=== PATIENT | male | born 2000 | race Two or more races ===

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

== ENCOUNTER 2021-02-06 10:25 | Emergency (ER) | payer MEDICAID ==
[~2021-02-06] VITALS: Ht 190.5 cm; Wt 117.9 kg
[2021-02-06 12:33] VITALS: BP 139/91
== END 2021-02-06 12:41 | disposition home or self-care (01) ==
LOC: ER 10:25
DX: J45.909 Unspecified asthma, uncomplicated (principal)

== ENCOUNTER 2021-08-01 16:38 | Emergency (ER) | payer MEDICAID ==
[~2021-08-01] VITALS: Ht 190.5 cm; Wt 117.9 kg
[2021-08-01] MEDS ORDERED: IPRATROPIUM BROM 0.5 MG/2.5ML INH SOL NEB ONE ×2 (16:45→18:15)
[2021-08-01] MEDS ORDERED: ALBUTEROL SULF 2.5 MG/0.5ML(0.5%) NEB SOLN NEB ONE ×2 (16:45→18:15)
[2021-08-01 16:48] VITALS: BP 142/71
[2021-08-01] MEDS ORDERED: methylPREDNISolone SOD SUCC 125 MG/2 ML VL IM ONE (17:45)
[2021-08-01] MEDS ORDERED: PRED20TA2 PO ×2 (18:23→18:31)
[2021-08-01] MEDS ORDERED: ALBU108A5 IN ×2 (18:23→18:31)
== END 2021-08-01 18:40 | disposition home or self-care (01) ==
LOC: ER 16:38
DX: J45.901 Unspecified asthma with (acute) exacerbation (principal)
CPT/HCPCS: 94640; 96372; 99283; J2930; J7644

== ENCOUNTER 2021-11-11 21:49 | Emergency (ER) | payer MEDICAID ==
[~2021-11-11] VITALS: Ht 190.5 cm; Wt 118.0 kg
[~2021-11-11 21:49] MED LIST: ALBU108A5 IN; PRED20TA2 PO
[2021-11-12 00:10] VITALS: BP 142/83
[2021-11-12] MEDS ORDERED: ALBUTEROL SULF 2.5 MG/0.5ML(0.5%) NEB SOLN NEB ONE (03:00)
[2021-11-12] MEDS ORDERED: IPRATROPIUM BROM 0.5 MG/2.5ML INH SOL NEB ONE (03:00)
[2021-11-12] MEDS ORDERED: AZITTAB PO (04:29)
== END 2021-11-12 04:40 | disposition home or self-care (01) ==
LOC: ER 21:49
DX: U07.1 COVID-19 (principal); J45.909 Unspecified asthma, uncomplicated
CPT/HCPCS: 36415; 71045; 87426; 94640; 99284; J7644

== ENCOUNTER 2023-03-07 13:15 | Emergency (ER) | payer MEDICAID ==
[~2023-03-07] VITALS: Ht 190.5 cm; Wt 120.0 kg
[~2023-03-07 13:15] MED LIST changes: +AZITTAB PO
[2023-03-07 14:07] LABS: COVID19 ANTIGEN SOFIA FIA NEGATIVE (NEGATIVE); Rapid Influenza A Negative (Negative); Rapid Influenza B Negative (Negative)
[2023-03-07 18:19] VITALS: BP 135/85; PULSE 69; RESP 18; TEMP 98.5; O2SAT 97
[2023-03-07] MEDS ORDERED: methylPREDNISolone SOD SUCC 125 MG/2 ML VL IM ONE (19:15)
[2023-03-07] MEDS ORDERED: AMOX875T4 PO (19:18)
[2023-03-07] MEDS ORDERED: PRED20TA2 PO (19:18)
[2023-03-07 19:34] VITALS: PULSE 81
== END 2023-03-07 20:37 | disposition home or self-care (01) ==
LOC: ER 13:15
DX: J20.9 Acute bronchitis, unspecified (principal); F12.10 Cannabis abuse, uncomplicated; J45.909 Unspecified asthma, uncomplicated; R07.89 Other chest pain; Z86.73 Personal history of transient ischemic attack (TIA), and cerebral infarction without residual deficits; Z20.822 Contact with and (suspected) exposure to COVID-19
CPT/HCPCS: 36415; 71046; 87426; 87804; 93005; 96372; 99285; J2930

== ENCOUNTER 2024-06-29 22:50 | Emergency (ER) | payer MEDICAID ==
[~2024-06-29] VITALS: Ht 190.5 cm; Wt 124.2 kg
[~2024-06-29 22:50] MED LIST changes: +AMOX875T4 PO
[2024-06-29] MEDS: DexAMETHasone SOD PHOS 10MG/1ML VIAL INJ IM ONE (23:39)
[2024-06-29 23:46] VITALS: BP 137/75; PULSE 65; RESP 20; TEMP 98.3; O2SAT 97
[2024-06-29] MEDS: IPRATROPIUM BROM 0.5 MG/2.5ML INH SOL NEB ONE (23:59)
[2024-06-29] MEDS: ALBUTEROL SULF 2.5 MG/0.5ML(0.5%) NEB SOLN NEB ONE (23:59)
[2024-06-30] MEDS ORDERED: BUDE1AER5 IN (00:17)
--- NOTE | 2024-06-30 00:17 | ED.PDOC ---
SOB-HPI HPI Comments This patient is a pleasant but morbidly obese 24-year-old male who arrives the ED today for evaluation of shortness a breath and cough that began earlier today and has continued. Patient has a history of asthma and states he has had multiple rounds of albuterol at home without effect. Patient denies any fever nausea or vomiting. Patient denies any current sickness. Patient was mildly tachypneic, but saturating at 98% on room air at arrival. Chief Complaint: Cough Time Seen by MD: 22:54 Primary Care Provider: [facility] Patel notes: Nurses Notes Information Source: Patient Mode of Arrival: Ambulatory Severity: Moderate Timing: Hours Duration: Since onset Context: At Rest PE Risk Factors: None History of: Asthma Prehospital treatment: Treatment Associated Signs and Symptoms: Wheeze, Cough Quality: Tightness If cough with SOB: Non-Productive Past Medical History PAST MEDICAL HISTORY: Asthma, CVA Surgical History: Denies all surgeries Family History Family History: Unknown Social History Smoker: Non-Smoker Alcohol: Denies ETOH Use Drugs: Marijuana Lives In: Home Constitutional: denies: chills, diaphoresis, fatigue, fever, malaise, sweats, weakness, others EENTM: denies: blurred vision, double vision, ear bleeding, ear discharge, ear drainage, ear pain, ear ringing, eye pain, eye redness, hearing loss, mouth pain, mouth swelling, nasal discharge, nose bleeding, nose congestion, nose jacinta n, photophobia, tearing, throat pain, throat swelling, voice changes, others Respiratory: reports: cough, SOB at rest, shortness of breath; denies: hemoptysis, orthopnea, SOB with excertion, stridor, wheezing, others Cardiovascular: denies: chest pain, dizzy spells, diaphoresis, Dyspnea on exertion, edema, irregular heart beat, left arm pain, lightheadedness, palpitations, PND, syncope, others Gastrointestinal: denies: abdomen distended, abdominal pain, blood streaked bowels, constipated, diarrhea, dysphagia, difficulty swallowing, hematemesis, melena, nausea, poor appetite, poor fluid intake, rectal bleeding, rectal pain, vomiting, others Genitourinary: denies: burning, dysuria, flank pain, frequency, hematuria, incontinence, penile discharge, penile sore, pain, testicle pain, testicle swelling, urgency, others Neurological: denies: dizziness, fainting, headache, left sided numbness, left sided weakness, numbness, paresthesia, pre-existing deficit, right sided num bness, right sided weakness, seizure, speech problems, tingling, tremors, weakness, others Musculoskeletal: denies: back pain, gout, joint pain, joint swelling, muscle pain, muscle stiffness, neck pain, others Integumetry: denies: bruises, change in color, change in hair/nails, dryness, laceration, lesions, lumps, rash, wounds, others Allergic/Immunocompromised: denies: Difficulty Healing, Frequent Infections, Hives, Itching, others Hematologic/Lymphatic: denies: anemia, blood clots, easy bleeding, easy bruising, swollen glands, others Endocrine: denies: excessive hunger, excessive sweating, excessive thirst, excessive urination, flushing, intolerance to cold, intolerance to heat, unexplained weight gain, unexplained weight loss, others Psychiatric: denies: anxiety, bipolar disorder, depression, hopeless, panic disorder, schizophrenia, sleepless, suicidal, others Physical Exam General Appearance: Mild Distress (Moderate distress due to shortness a breath concerns. Patient did not look toxic. No signs of respiratory distress.), Obese HEENT: Normal ENT Inspection, Pharynx Normal, TMs Normal Neck: Full Range of Motion, Non-Tender, Normal, Normal Inspection Respiratory: Other ( Patchy wheezing appreciated in right middle and upper lobe. No accessory muscle use.) Cardiovascular: No Edema, No JVD, No Murmur, No Gallop, Normal Peripheral Pulses, Regular Rate/Rhythm Breast Exam: Deferred Gastrointestinal: No Organomegaly, Non Tender, No Pulsatile Mass, Normal Bowel Sounds, Soft Genitalia: Deferred Pelvic: Deferred Rectal: Deferred Extremities: No calf tenderness, Normal capillary refill, Normal inspection, Normal range of motion, Non-tender, No pedal edema Neurologic: Alert, No Motor Deficits, Normal Affect, Normal Mood, No Sensory Deficits Cerebellar Function: Normal Reflexes: Normal Skin: Dry, Normal Color, Warm Lymphatic: No Adenopathy Was a procedure done? Was a procedure done?: No Differential Dx Differential Diagnosis: Asthma X-Ray, Labs, Meds, VS Vital Signs Date Time Temp Pulse Resp B/P (MAP) Pulse Ox O2 Delivery O2 Flow Rate FiO2 06/29/24 23:46 65 20 97 Room Air 3/28/25 23:46 98.3 65 20 137/75 (95) 97 98.3 06/29/24 23:00 98.0 81 22 144/90 (108) 98 98.0 06/29/24 23:00 22 98 Room Air* 0 21 Current Medications Medications (Trade) Dose Ordered Sig/Ludin Route Start Time Stop Time Status Last Admin Albuterol (Ventolin Medneb) 5 mg ONCE ONCE NEB 06/29/24 23:30 06/29/24 23:31 DC 06/29/24 23:59 Ipratropium Goldsmith (Atrovent Medneb) 0.5 mg ONCE ONCE NEB 06/29/24 23:30 06/29/24 23:31 DC 06/29/24 23:59 Dexamethasone Sodium Phosphate (Decadron Injection) 10 mg ONCE ONCE IM 06/29/24 23:30 06/29/24 23:31 DC 06/29/24 23:39 X-Ray, Labs, Meds, VS Comment Patient responded well to medication dispensed to the ED. Advised patient to follow up with his primary care provider for discussions related to today's vi sit. Advised patient utilize medication prescribed today for the next seven days. Time of 1ST Reevaluation: 00:15 Reevaluation 1ST: Improved Consultation: PCP Patient Education/Counseling: Diagnosis, Treatment Family Education/Counseling: Diagnosis, Treatment Departure 1 Departure Time of Disposition: 00:15 Impression: Primary Impression: Acute asthma exacerbation Disposition: HOME / SELF CARE / HOMELESS Condition: Stable Additional Instructions: Advised patient utilize medication as directed for the next seven days. Patient should follow up with his primary care provider for discussions related to his medication management of his asthma. e-Prescriptions Budesonide-Formoterol Fumarate (Budesonide/Formoterol Fum 80-4.5 Mcg/Act) 1 Aer Aer 2 AER IN BID for 7 Days, #1 AER Prov: RUSSELL BURROUGHS PAC 06/30/24 Discharged With: Self, Friend Critical Care Note Critical Care Time?: No Stability Stability form required: No Heart Score Heart Score: Heart Score Response (Comments) Value History N/A 0 EKG N/A 0 Age N/A 0 Risk Factors N/A 0 Troponin N/A 0 Total 0 RUSSELL BURROUGHS PAC Jun 30, 2024 00:17
== END 2024-06-30 00:25 | disposition home or self-care (01) ==
LOC: ER 22:50
DX: J45.901 Unspecified asthma with (acute) exacerbation (principal); Z86.73 Personal history of transient ischemic attack (TIA), and cerebral infarction without residual deficits
CPT/HCPCS: 94640; 96372; 99283; J1100